=== PATIENT | female | born 1930 | race Caucasian/White ===

== ENCOUNTER → 2018-01-11 | Outpatient (CLI) | payer MEDICARE | END | disposition home or self-care (01) | LOC: CFH 13:51 | PROVIDERS: ATTEND Internal Medicine | DX: Z12.31 Encounter for screening mammogram for malignant neoplasm of breast (principal); Z80.3 Family history of malignant neoplasm of breast | CPT/HCPCS: 77067 ==

== ENCOUNTER → 2018-01-26 | Outpatient (CLI) | payer MEDICARE ==
[~2018-01-26] MED LIST: LIDOCAINE 1%, 20ML ONE; LIDOCAINE 1%-EPI 1:100K, 20ML ONE; SODIUM BICARBONATE 4.0%, 5ML ONE
== END | disposition home or self-care (01) ==
LOC: CFH 08:16
PROVIDERS: ATTEND Internal Medicine
DX: N63.41 Unspecified lump in right breast, subareolar (principal)
CPT/HCPCS: 19083; 19285; 77065; 88305; J3490; 88360

== ENCOUNTER → 2018-02-18 | Outpatient (CLI) | payer MEDICARE ==
[~2018-02-18] MED LIST changes: +ASPI-496 PO; +COQ10 PO; -LIDOCAINE 1%, 20ML ONE; -LIDOCAINE 1%-EPI 1:100K, 20ML ONE; -SODIUM BICARBONATE 4.0%, 5ML ONE; +VITAMIN D3 PO
== END | disposition home or self-care (01) ==
LOC: STAR 09:58
PROVIDERS: ATTEND Surgery
DX: Z01.812 Encounter for preprocedural laboratory examination (principal); C50.111 Malignant neoplasm of central portion of right female breast
CPT/HCPCS: 93005

== ENCOUNTER 2018-02-25 10:31 | Day surgery (SDC) | payer MEDICARE ==
[~2018-02-25] VITALS: Ht 165.1 cm; Wt 73.6 kg
[~2018-02-25 10:31] MED LIST changes: +BUPIVACAINE/PF-EPI 0.5% 1:200K ONE
[2018-02-25] MEDS ORDERED: LACTATED RINGERS 1,000 ML IV SCH (10:58)
[2018-02-25] MEDS ORDERED: ONDANSETRON ODT 8 MG PO ONE (11:00)
[2018-02-25] MEDS ORDERED: SCOPOLAMINE PATCH, 1.5MG PATCH.TD72 TD ONE (11:00)
[2018-02-25] MEDS ORDERED: GABAPENTIN 300 MG CAPSULE PO ONE (11:00)
[2018-02-25] MEDS ORDERED: LIDOCAINE/PF 1%, 30ML ONE (11:20)
[2018-02-25] MEDS ORDERED: FENTANYL PF 250 MCG/5ML ONE (11:56)
[2018-02-25] MEDS ORDERED: ISOSULFAN BLUE 10 MG/ML, 5ML IV ONE (12:10)
[2018-02-25] MEDS ORDERED: LIDOCAINE 4%, 4 ML SYR/CANN TP ONE (12:27)
[2018-02-25] MEDS ORDERED: CEFAZOLIN 1,000 MG ONE (12:40)
[2018-02-25] MEDS ORDERED: ROCURONIUM 10MG/ML,5ML ONE (12:40)
[2018-02-25] MEDS ORDERED: DEXAMETHASONE 4 MG/ML, 1ML ONE (12:40)
[2018-02-25] MEDS ORDERED: PROPOFOL 10 MG/ML, 20ML ONE (12:40)
[2018-02-25] MEDS ORDERED: ONDANSETRON 2MG/ML, 2ML ONE (12:40)
[2018-02-25] MEDS ORDERED: SUCCINYLCHOLINE 20 MG/ML, 10ML ONE (12:40)
[2018-02-25] MEDS ORDERED: NEOSTIGMINE 1 MG/ML, 10ML ONE (12:40)
[2018-02-25] MEDS ORDERED: EPHEDRINE 50 MG/ML, 1ML ONE (12:40)
[2018-02-25] MEDS ORDERED: GLYCOPYRROLATE 0.2MG/1ML, 5ML ONE (12:40)
[2018-02-25] MEDS ORDERED: FENTANYL PF 100 MCG/2ML IV PRN (13:00)
[2018-02-25] MEDS ORDERED: PROMETHAZINE 25 MG/ML, 1ML IV PRN (13:00)
[2018-02-25] MEDS ORDERED: PROMETHAZINE 25 MG SUPP PR PRN (13:00)
[2018-02-25] MEDS ORDERED: MORPHINE SULFATE 4 MG/ML, 1ML IVPush PRN (13:00)
[2018-02-25] MEDS ORDERED: ONDANSETRON ODT 8 MG PO PRN (13:00)
[2018-02-25] MEDS ORDERED: OXYcodone 5 MG/5 ML ORAL.SOL UDC PO PRN (13:00)
== END 2018-02-25 18:05 | disposition home or self-care (01) ==
LOC: OUT 10:31 → EDSTATUS 13:00 → RAD 18:05
PROVIDERS: ATTEND Surgery
DX: C50.911 Malignant neoplasm of unspecified site of right female breast (principal); R59.1 Generalized enlarged lymph nodes; F41.9 Anxiety disorder, unspecified; I10 Essential (primary) hypertension; Z79.82 Long term (current) use of aspirin; Z98.890 Other specified postprocedural states; Z88.0 Allergy status to penicillin
CPT/HCPCS: 19301; 38525; 38792; 76098; 88307; 88329; 88331; A9541; C9898; J0330; J0690; J1100; J2405; J2704; J2710; J3010; J3490; J7120; Q0162

== ENCOUNTER → 2018-03-30 | Outpatient (CLI) | payer MEDICARE ==
[~2018-03-30] MED LIST changes: -BUPIVACAINE/PF-EPI 0.5% 1:200K ONE
== END | disposition home or self-care (01) ==
LOC: ROC 07:15
PROVIDERS: ATTEND Radiology Radiation Oncology
DX: Z02.9 Encounter for administrative examinations, unspecified (principal)

== ENCOUNTER → 2018-06-15 | Outpatient (CLI) | payer MEDICARE | END | disposition home or self-care (01) | LOC: CFH 10:33 | PROVIDERS: ATTEND Internal Medicine Hematology & Oncology | DX: M85.88 Other specified disorders of bone density and structure, other site (principal); Z85.3 Personal history of malignant neoplasm of breast | CPT/HCPCS: 77080 ==

== ENCOUNTER → 2020-03-07 | Outpatient (CLI) | payer MEDICARE ==
[~2020-03-07] MED LIST changes: +ANAS1TAB PO; +TRAM50TA2 PO
== END | disposition home or self-care (01) ==
LOC: EDSTATUS 11:15 → CFH 11:38
PROVIDERS: ATTEND Internal Medicine Hematology & Oncology
DX: Z12.31 Encounter for screening mammogram for malignant neoplasm of breast (principal)
CPT/HCPCS: 77063; 77067